=== PATIENT | female | born 1940 | race Caucasian/White ===

== ENCOUNTER 2022-06-11 07:54 | Outpatient (RCR) | payer MEDICARE, BC, SELFPAY ==
[2022-06-11 08:18] VITALS: BP 133/75; PULSE 103; RESP 16; TEMP 35.7; O2SAT 99
[2022-06-11] MEDS: cefTRIAXone 2 GM in 0.9 % SODIUM CHLORIDE Mini-bag 100 ML IVPB (08:36)
[2022-06-11 09:03] LABS: Alanine Aminotransferase* 19 U/L (4-35); Alkaline Phosphatase* 61 U/L (40-150); Basophils Percent Auto 0.4 % (0.0-3.0); Creatinine* 0.8 mg/dL (0.5-1.5); Eosinophils Percent Auto 12.1 % (0.0-7.0); Estimated Glomerular Filt Rate 74 ml/min; Hematocrit 30.8 % (33.0-51.0); Hemoglobin* 10.2 gm/dL (12.0-16.0); Lymphocytes Percent Auto 13.9 % (20-44); Mean Corpuscular HGB Conc 33 gm/dL (32-36); Mean Corpuscular Hemoglobin 33 pg (26-34); Mean Corpuscular Volume 98 fL (80-100); Monocytes Percent Auto 9.1 % (0.0-11.0); Neutrophils Percent Auto 64.5 % (42.0-72.0); Platelet Count* 153 K/uL (140-440); RDW Coefficient of Variation % 17.1 % (11.5-15.5); Red Blood Count 3.13 m/uL (4.00-5.20); Slide Review Reflex No; White Blood Count* 2.31 K/uL (4.50-11.00)
--- NOTE | 2022-06-11 10:43 | ONC.NURNOTE ---
Pt here for Ceftriaxone, PICC drsg change. VSS. Labs done and sent to [place] [facility]. Pt has concerns that left abd TATO site is draining a moderate amt of drainage. RN applied 4 x 4 drain gauze to both drain sites. Pt's daughter called surgeon's office to have drain sites evaluated. Pt tolerated Ceftriaxone infusion. No future appts made as pt may transfer antibiotic therapy to [facility], closer to home.
== END 2022-12-08 23:59 | disposition home or self-care (01) ==
LOC: CCIC 07:54
PROVIDERS: Visit Provider Clinical Nurse Specialist
DX: L08.9 Local infection of the skin and subcutaneous tissue, unspecified (principal)
CPT/HCPCS: 36415; 36592; 82565; 84075; 84460; 85025; 96365; A4221; J0696